=== PATIENT | male | born 1945 | race Caucasian/White ===

== ENCOUNTER 2021-03-30 04:27 | Observation (INO) ==
[2021-03-30] MEDS ORDERED: ONDANSETRON 4 MG/2 ML VIAL IV PRN (07:27)
[2021-03-30] MEDS ORDERED: ACETAMINOPHEN 325 MG TABLET PO PRN (07:27)
[2021-03-30] MEDS ORDERED: MORPHINE 4 MG/1 ML VIAL IV PRN (07:27)
[2021-03-30] MEDS ORDERED: ZALEPLON 5 MG CAPSULE PO PRN (07:27)
[2021-03-30] MEDS: PANTOPRAZOLE 40 MG TABLET PO SCH (08:17)
[2021-03-30 09:26] LABS: Albumin 3.4 G/DL (3.4-5.0); Bilirubin,Total 0.6 MG/DL (0.2-1.0); Calcium 8.5 MG/DL (8.5-10.1); Osmolality,Calculated 279.4 MOS/KG (273-304); Potassium 4.8 MMOL/L (3.5-5.1); Risk Ratio 2.78; Thyroid Stimulating Hormone 0.877 uIU/ml (0.358-3.74); Total Protein 6.4 G/DL (6.4-8.2)
[2021-03-30] MEDS: ENOXAPARIN 40 MG/0.4 ML SYRINGE SUBCUT SCH (09:43)
[2021-03-30] MEDS ORDERED: DIAZEPAM 5 MG TABLET PO ONE (09:50)
[2021-03-30] MEDS ORDERED: diphenhydrAMINE CAP 50 MG CAPSULE PO ONE (09:50)
[2021-03-30] MEDS ORDERED: diphenhydrAMINE CAP 25 MG CAPSULE ONE (09:54)
[2021-03-30] MEDS: ASPIRIN EC 81 MG TABLET PO SCH (09:55)
[2021-03-30] MEDS: SODIUM CHLORIDE 0.9% 1,000 ML IV SCH ×3 (10:00→20:22)
[2021-03-30] MEDS ORDERED: LIDOCAINE 1% 20 ML VIAL ONE (10:03)
[2021-03-30] MEDS ORDERED: VERAPAMIL 5 MG/2 ML VIAL ONE (10:03)
[2021-03-30] MEDS ORDERED: NITROGLYCERIN DRIP 50 MG/250 ML BOTTLE IV ONE (10:03)
[2021-03-30] MEDS ORDERED: HEPARIN/NACL 0.9% 2 UNITS/ML 2,000 UNIT/1,000 ML BAG IV ONE (10:03)
[2021-03-30] MEDS ORDERED: fentaNYL 100 MCG/2 ML VIAL ONE (10:14)
[2021-03-30] MEDS ORDERED: MIDAZOLAM 2 MG/2 ML VIAL ONE (10:14)
[2021-03-30] MEDS ORDERED: ENOXAPARIN 60 MG/0.6 ML SYRINGE ONE (10:25)
[2021-03-30] MEDS ORDERED: TIROFIBAN 5,000 MCG/100 ML PREMIX IV ONE (10:35)
[2021-03-30] MEDS ORDERED: TICAGRELOR 90 MG TABLET ONE (11:04)
[2021-03-30] MEDS ORDERED: NITROGLYCERIN SL 0.4 MG TABLET SL PRN (11:15)
[2021-03-30] MEDS: TICAGRELOR 90 MG TABLET PO SCH (20:22)
[2021-03-30] MEDS ORDERED: ROSUVASTATIN 20 MG TABLET PO SCH (21:00)
[2021-03-31] MEDS: SODIUM CHLORIDE 0.9% 1,000 ML IV SCH ×2 (04:30→09:58)
[2021-03-31 07:31] LABS: Basophils % 0.5 % (0.0-0.8); Eosinophils # 0.3 10*3/uL (0.0-0.87); Hematocrit 43.2 VOL% (42.0-52.0); Hemoglobin 14.2 GM/DL (14.0-18.0); Immature Granulocytes % 0.5 %; Immature Granulocytes Absolute 0.03 #; Lymphocytes # 0.8 10*3/uL (1.4-4.0); Lymphocytes % 11.5 % (21.2-54.2); Mean Corpuscular HGB Conc 32.9 GM/DL (32-36); Mean Corpuscular Volume 97.3 FL (87-102); Mean Platelet Volume 10.7 FL (9.6-12.0); Monocytes % 9.7 % (1.7-12.7); Neutrophils % 73.8 % (38.7-73.9); Platelet Count 142 T/CUMM (130-400); Red Blood Count 4.44 MC/CUMM (3.8-5.5); Red Cell Distribution Width 13.4 % (9.3-17.3); White Blood Count 6.5 T/CUMM (4-12)
[2021-03-31 07:50] LABS: Calcium 7.9 MG/DL (8.5-10.1); Osmolality,Calculated 276.5 MOS/KG (273-304); Potassium 4.5 MMOL/L (3.5-5.1)
[2021-03-31 08:05] LABS: Platelet Estimate Adequate
[2021-03-31 08:06] LABS: Anisocytosis Slight; Ovalocytes Few
[2021-03-31] MEDS: PANTOPRAZOLE 40 MG TABLET PO SCH (08:27)
[2021-03-31] MEDS: ASPIRIN EC 81 MG TABLET PO SCH (08:27)
[2021-03-31] MEDS: TICAGRELOR 90 MG TABLET PO SCH (08:27)
[2021-03-31] MEDS: ENOXAPARIN 40 MG/0.4 ML SYRINGE SUBCUT SCH (08:28)
[2021-03-31 12:46] VITALS: BP 129/98
== END 2021-03-31 13:30 | disposition home or self-care (01) ==
LOC: N.TELES → SUATTDRO 06:31
PROVIDERS: ADMIT Internal Medicine; ATTEND Internal Medicine Geriatric Medicine
PROC: CLCCHCL (ICD-10-PCS; 2021-03-30 11:15)